=== PATIENT | female | born 1985 | race Hispanic/Latino ===

== ENCOUNTER 2019-05-17 22:07 | Emergency (ER) | payer OTHER | END 2019-05-17 23:21 | disposition home or self-care (01) | LOC: EDH 22:07 | DX: R07.89 Other chest pain (principal); F41.1 Generalized anxiety disorder | CPT/HCPCS: 93005 ==

== ENCOUNTER 2020-01-13 01:23 | Emergency (ER) | payer OTHER ==
[2020-01-13] MEDS ORDERED: TETRACAINE HCL 0.5% 4 ML OPHTH SOLN ONE (01:34)
[2020-01-13] MEDS ORDERED: FLUORESCEIN SODIUM 1 STRIP STRIP ONE (01:35)
[2020-01-13] MEDS ORDERED: TETANUS/DIPHTHERIA TOXOID [ADULT] 0.5 ML VIAL IM ONE (01:57)
== END 2020-01-13 02:03 | disposition home or self-care (01) ==
LOC: EDH 01:23
DX: S05.02XA Injury of conjunctiva and corneal abrasion without foreign body, left eye, initial encounter (principal); X58.XXXA Exposure to other specified factors, initial encounter; Y93.89 Activity, other specified; Y92.89 Other specified places as the place of occurrence of the external cause; Y99.8 Other external cause status
CPT/HCPCS: 90471; 90714

== ENCOUNTER 2023-12-02 15:03 | Emergency (ER) | payer OTHER ==
[~2023-12-02] VITALS: Ht 167.6 cm; Wt 81.6 kg
[2023-12-02 16:36] LABS: APPEARANCE,URINE CLOUDY (CLEAR); BILIRUBIN,URINE NEGATIVE (NEGATIVE); COLOR,URINE LIGHT-YELLOW (YELLOW); GLUCOSE, URINE (UA) NEGATIVE (NEGATIVE); KETONES,URINE NEGATIVE (NEGATIVE); LEUKOCYTE ESTERASE ,URINE NEGATIVE Leu/uL (NEGATIVE); NITRATE,URINE NEGATIVE (NEGATIVE); OCCULT BLOOD,URINE NEGATIVE (NEGATIVE); PH,URINE 5.5 (5.0-8.0); PROTEIN,URINE NEGATIVE (NEGATIVE); UROBILINOGEN,URINE 0.2 mg/dL (0.2-1.0)
[2023-12-02 16:38] LABS: HCG,QUALITATIVE URINE NEGATIVE (NEGATIVE)
[2023-12-02 16:40] LABS: ADD UA MICROSCOPIC YES
[2023-12-02 16:41] LABS: MUCUS,URINE RARE LPF (None Seen); RBC,URINE 0-1 /HPF (0-1); SQUAMOUS EPITHELIAL CELL,UR MOD /HPF (0-2); WBC,URINE 0-1 /HPF (0-1)
[2023-12-02] MEDS: HYDROcodone/APAP 5/325 1 TAB TABLET PO ONE (17:10)
[2023-12-02] MEDS: ondanSETRON ODT 4MG TAB SL ONE (17:10)
[2023-12-02] MEDS ORDERED: METH4TAB3 PO (18:38)
[2023-12-02] MEDS ORDERED: CYCL10TA16 PO (18:38)
[2023-12-02 18:48] VITALS: BP 115/86; PULSE 75; RESP 16; TEMP 98.6; O2SAT 98
== END 2023-12-02 18:58 | disposition home or self-care (01) ==
LOC: EDH 15:03
DX: M79.661 Pain in right lower leg (principal); M62.838 Other muscle spasm; M54.50 Low back pain, unspecified; M51.16 Intervertebral disc disorders with radiculopathy, lumbar region; V89.2XXA Person injured in unspecified motor-vehicle accident, traffic, initial encounter; Y93.89 Activity, other specified; Y92.488 Other paved roadways as the place of occurrence of the external cause; Y99.8 Other external cause status
CPT/HCPCS: 72131; 73590; 73610; 81001; 81025

== ENCOUNTER 2024-10-08 17:15 | Emergency (ER) | payer OTHER ==
[~2024-10-08] VITALS: Ht 170.2 cm; Wt 80.7 kg
[~2024-10-08 17:15] MED LIST: CYCL10TA16 PO; METH4TAB3 PO
[2024-10-08] MEDS: DICYCLOMINE HCL 10 MG/5 ML ML PO ONE (17:45)
[2024-10-08] MEDS: MAG/ALUM/SIMETH 30 ML UDCUP PO ONE (17:45)
[2024-10-08] MEDS: LIDOCAINE HCL 2% VISCOUS 15 ML UDCUP PO ONE (17:46)
[2024-10-08 18:03] LABS: RAPID GROUP A STREP negative (NEGATIVE)
[2024-10-08 18:12] LABS: COVID19 (SARS ANTIGEN RAPID) PRESUMPTIVE NEGATIVE (NEGATIVE); INFLUENZA TYPE A Negative For Type A (NEGATIVE); INFLUENZA TYPE B Negative For Type B (NEGATIVE)
--- NOTE | 2024-10-08 18:54 | HMCIMG ---
EXAM: CR Chest, 1 View. CLINICAL HISTORY: cough, back pain COMPARISON: None provided. FINDINGS: LUNGS: There is no mass, infiltrate, or acute pulmonary abnormality. PLEURAL SPACES: No pleural effusion or pneumothorax. MEDIASTINUM: Cardiac size and mediastinal contours within normal limits. BONES: No aggressive appearing osseous lesion seen. IMPRESSION: No acute cardiopulmonary pathology is evident. /[place]
--- NOTE | 2024-10-08 18:58 | ERN ---
ED Note History of Present Illness Stated Complaint: MULTIPLE COMPLAINTS Chief Complaint: Multiple Complaints Time Seen by MD: 17:18 Time Seen by Midlevel: 17:18 Dictation: The patient is a 39-year-old female with a history of hypertension, diabetes, h yperlipidemia, cholecystectomy who presents to the emergency department with complaints sore throat, painful swallowing, sensation foreign body in throat, upper back pain, nonproductive cough onset 1.5 weeks ago. Patient reports she was seen at an urgent care and was giving a Zpack for possible pneumonia but did not had any x-rays done. Patient denies any fevers, denies in ear pain Allergies: Coded Allergies: No Known Drug Allergies (Unverified Allergy, Unknown, 05/17/19) Home Meds Active Scripts Methylprednisolone (Medrol) 4 Mg Tab.ds.pk, 1 TAB PO AD for 6 Days, #21 TAB 0 Refills 6 on day 1 then reduce by one tablet daily until gone Prov:AMAYA MARIE NP 12/02/23 Cyclobenzaprine HCl (Flexeril) 10 Mg Tab, 10 MG PO HSPRN for muscle spasm, #15 TAB Prov:AMAYA MARIE NP 12/02/23 Past Medical History Past Medical History: No Pertinent History Surgical History: None Social History: Negative, Lives with family RN Note Reviewed/Agreed w/PFSH: Yes Review of System Dictation Constitutional: Negative for fever,chills, and weight loss Eyes: Negative for injury, pain,redness, and discharge ENT: Negative for injury,pain or swelling positive for sore throat Cardiovascular: Negative for chest pain, palpitations, and edema Respiratory: Negative for shortness of breath, and wheezing, positive for cough Abdomen/GI: Negative for abdominal pain, nausea, vomiting, diarrhea, and constipation Back: Negative for injury and pain : Negative for injury, bleeding and discharge MS/Extremity: Negative for injury and deformity Skin: Negative for rash, and discoloration Neuro: Negative for headache, weakness, numbness, tingling, and seizure Psych: Negative for suicide ideation, homicidal ideation, and hallucinations Initial Vital Sign VS Vital Signs Date Time Temp Pulse Resp B/P (MAP) Pulse Ox O2 Delivery O2 Flow Rate FiO2 10/08/24 17:17 97.7 101 16 119/82 97 Room Air 10/08/24 17:25 0 21 Physical Exam Dictation Vital Signs reviewed General Appearance: Alert, oriented x 3, no acute distress, well developed, nourished. Head and Face: non-traumatic. Eyes: PERRL, pink conjunctivas, eyelid no trauma, anterior chamber with arcus senilis. Ears: Pinnas intact and no signs of trauma or erythema ear canals clear and no discharge TM no erythema Nose: No discharge, no bleeding. Oropharynx: Mouth normal, tongue pink. pharynx clear,no erythema, tonsils no exudates, no abscesses noted, mucous membrane moist Neck: Supple, non-tender, no thyromegaly, no masses, no JVD, no bruits Breast:Deferred Chest:No tenderness, no crepitus, no paradoxical movement, no retractions Lungs:Clear, well-ventilated, symmetric, no rales, no wheezing, no rhonchi, no stridor, good breath sounds bilaterally Heart: Regular rate, regular rhythm, no murmur, no gallops Vascular: no peripheral edema, Abdomen: Soft, positive bowel sounds, nondistended, no guarding, nontender, no rebound, no masses no hepatomegaly, no splenomegaly, no Pickard's sign, no hernias. Rectal: Deferred Genital: Deferred Neurological: Normal speech, motor function intact, sensory function intact Musculoskeletal: Neck nontender, full range of motion, back nontender, full range of motion, Extremities: nontender, full range of motion Skin: Color pink, dry, no turgor, no rash, no lacerations, no abrasions, no contusions. Lymphatic: Deferred Results (Laboratory/Radiology) Laboratory/Radiology Laboratory Tests Test 10/08/24 17:42 Influenza Type A Antigen Negative For Type A Influenza Type B Antigen Negative For Type B SARS-CoV-2 Antigen (Rapid) PRESUMPTIVE NEGATIVE Group A Streptococcus Rapid negative (NEGATIVE) REASON: cough, back pain ORDERING PHYSICIAN: LIZ BEAVERS COLLECTION CARD CLERK PROCEDURE: [id number] - CHEST 1VW EXAM: CR Chest, 1 View. CLINICAL HISTORY: cough, back pain COMPARISON: None provided. FINDINGS: LUNGS: There is no mass, infiltrate, or acute pulmonary abnormality. PLEURAL SPACES: No pleural effusion or pneumothorax. MEDIASTINUM: Cardiac size and mediastinal contours within normal limits. BONES: No aggressive appearing osseous lesion seen. IMPRESSION: No acute cardiopulmonary pathology is evident. Labs Reviewed?: Yes ED Course ED Course Orders Procedure Category Date Status Time Chest 1vw RAD 10/08/24 Taken 17:30 Covid19 (Sars Antigen LAB 10/08/24 Complete Rapid) 17:30 Influenza Type A & B, LAB 10/08/24 Complete Rapid 17:30 Rapid (Group A Strep) LAB 10/08/24 Complete 17:30 Lidocaine Hcl 2% PHA 10/08/24 Complete Viscous (Lidocaine Hcl 17:30 Mag/Alum/Simeth 30ml PHA 10/08/24 Complete (Maalox Plus 30ml) 17:30 Dicyclomine Hcl PHA 10/08/24 Complete (Bentyl 10mg/5ml 17:30 Current Medications Medications (Trade) Dose Ordered Sig/Leon Route PRN Reason Start Time Stop Time Status Last Admin Dose Admin Al Hydroxide/Mg Hydroxide (MAALox PLUS 30ML) 30 ml ONCE ONCE PO 10/08/24 17:30 10/08/24 17:37 DC 10/08/24 17:45 Dicyclomine HCl (Bentyl 10mg/5ml Syrup) 10 mg ONCE ONCE PO 10/08/24 17:30 10/08/24 17:37 DC 10/08/24 17:45 Lidocaine HCl (Lidocaine HCl 2% Viscous) 10 ml ONCE ONCE PO 10/08/24 17:30 10/08/24 17:37 DC 10/08/24 17:46 Vital Signs Date Time Temp Pulse Resp B/P (MAP) Pulse Ox O2 Delivery O2 Flow Rate FiO2 10/08/24 17:25 97.9 100 16 120/80 98 Room Air* 0 21 10/08/24 17:17 97.7 101 16 119/82 97 Room Air Medical Decision Making MDM The patient is a 39-year-old female with a history of hypertension, diabetes, hyperlipidemia, cholecystectomy who presents to the emergency department with complaints sore throat, painful swallowing, sensation foreign body in throat, upper back pain, nonproductive cough onset 1.5 weeks ago. Patient reports she was seen at an urgent care and was giving a Zpack for possible pneumonia but did not had any x-rays done. Patient denies any fevers, denies in ear pain Serology was negative. X-ray showed no acute consolidations. On physical exam patient is in no acute distress, nontoxic appearance, no swelling to throat, airway intact no signs of abscess. Patient's symptoms probably related to viral infection. Patient will be discharged to follow up with primary doctor. Differential diagnosis: Pneumonia, pharyngitis, upper respiratory infection Need for hospitalization: Patient does not meet criteria for hospitalization. There are no social concerns with this patient. DX & DISP Disposition: Discharge Departure Impression: Primary Impression: Viral pharyngitis Additional Impression: URI (upper respiratory infection) Condition: Stable Additional Instructions: Your x-ray was normal. Please follow up with the primary doctor in 1-2 days. If anything worsens please return to ER. FOLLOW-UP WITH PRIMARY CARE PROVIDER IN 1 TO 2 DAYS. TAKE MEDICATIONS DIRECTED HERE IN THE EMERGENCY ROOM. OKAY TO CONTINUE HOME MEDICATIONS UNLESS OTHERWISE DISCUSSED DURING YOUR VISIT IN THE EMERGENCY ROOM TODAY. RETURN TO YOUR NEAREST EMERGENCY ROOM IF SYMPTOMS WORSEN OR IF THERE IS NO IMPROVEMENT. CALL 911 IF YOU NEED IMMEDIATE ASSISTANCE. TAKE TYLENOL [id number] NEEDED AND IF NO CONTRAINDICATIONS ARE PRESENT. INCREASE ORAL HYDRATION. A WOUND CULTURE OR URINE CULTURE WAS ORDERED HERE IN THE EMERGENCY ROOM DEPARTMENT PLEASE FOLLOW-UP WITH PRIMARY CARE PROVIDER AND ADVISE THEM TO GET REPEAT PORTS FROM OUR FACILITY. IF YOU HAD ANY HELGA WRAP/SPLINTS THAT WERE APPLIED HERE, PLEASE DO NOT REMOVE THEM UNTIL YOU SEE YOUR PRIMARY CARE OR SPECIALTY. Referrals: SEEMA GARRISON MD (PCP) Time of Disposition: 18:58 I have reviewed the case, and I agree with, Diagnosis and Plan LIZ BEAVERS Oct 08, 2024 18:58
[2024-10-08 19:08] VITALS: BP 120/76; PULSE 90; RESP 16; TEMP 97.8; O2SAT 98
== END 2024-10-08 19:15 | disposition home or self-care (01) ==
LOC: EDH 17:15
DX: J02.8 Acute pharyngitis due to other specified organisms (principal); B97.89 Other viral agents as the cause of diseases classified elsewhere; Z20.822 Contact with and (suspected) exposure to COVID-19; M54.6 Pain in thoracic spine; J06.9 Acute upper respiratory infection, unspecified; I10 Essential (primary) hypertension; E11.9 Type 2 diabetes mellitus without complications; E78.5 Hyperlipidemia, unspecified; Z90.49 Acquired absence of other specified parts of digestive tract
CPT/HCPCS: 71045; 87426; 87804; 87880; 99284